=== PATIENT | female | born 1955 | race Two or more races ===

== ENCOUNTER 2017-11-03 07:49 | Day surgery (SDC) | payer OTHER ==
[2017-10-29 11:03] VITALS: BMI 26.2
[2017-11-03] MEDS ORDERED: KETOROLAC TROMETHAMINE 0.5% 5 ML BOTTLE OPTHALMIC OD SCH (08:00)
[2017-11-03] MEDS ORDERED: CYCLOPENTOLATE HCL 1% OPHTH SOLN 2 ML BOTTLE OD SCH (08:00)
[2017-11-03] MEDS ORDERED: TROPICAMIDE 1% OPHTH SOLN 15 ML BOTTLE OD SCH (08:00)
[2017-11-03] MEDS ORDERED: GENTAMICIN SULFATE 0.3% OPHTHALMIC (EYE DROPS) 5ML BOTTLE OD SCH (08:00)
[2017-11-03] MEDS ORDERED: PHENYLEPHRINE 2.5% OPHTH SOLN 15 ML BOTTLE OD SCH (08:00)
[2017-11-03] MEDS: GENTAMICIN SULFATE 0.3% OPHTHALMIC (EYE DROPS) 5ML BOTTLE ONE ×5 (08:30→08:50)
[2017-11-03] MEDS: CYCLOPENTOLATE HCL 1% OPHTH SOLN 2 ML BOTTLE ONE ×5 (08:30→08:50)
[2017-11-03] MEDS: TROPICAMIDE 1% OPHTH SOLN 15 ML BOTTLE ONE ×5 (08:30→08:50)
[2017-11-03] MEDS: KETOROLAC TROMETHAMINE 0.5% 5 ML BOTTLE OPTHALMIC ONE ×5 (08:30→08:50)
[2017-11-03] MEDS: PHENYLEPHRINE 2.5% OPHTH SOLN 15 ML BOTTLE ONE ×5 (08:30→08:50)
[2017-11-03] MEDS ORDERED: MIDAZOLAM HCL 2 MG/2 ML SINGLE DOSE VIAL ONE (09:11)
[2017-11-03] MEDS ORDERED: ACETAMINOPHEN 325 MG TABLET (FP) PO PRN (10:13)
[2017-11-03 10:26] VITALS: TEMP 98
[2017-11-03 10:53] VITALS: BP 112/67; PULSE 76
--- NOTE | 2017-11-03 11:22 | OP ---
DATE OF OPERATION: 11/03/2017 PREOPERATIVE DIAGNOSIS: Cataract, right eye. POSTOPERATIVE DIAGNOSIS: Cataract, right eye. PROCEDURE: Cataract extraction via phacoemulsification with insertion of posterior chamber lens implant, right eye, multifocal intraocular lens. . SURGEON: Karl Howell MD PICK UP AND DELIVERY DRIVER: Juanita Booker MD ANESTHESIA: Topical with sedation. ESTIMATED BLOOD LOSS: Less than 1 mL. COMPLICATIONS: None. SPECIMENS: None. DESCRIPTION OF PROCEDURE: The patient was identified in the holding area. After all the risks, benefits, and alternatives were explained to the patient, informed consent was obtained. The right eye was marked with a marking pen. The patient then entered the operating room on an eye stretcher. After a formal time-out was performed, a topical solution of tetracaine eye drops was placed onto the right eye. The right eye was then prepped and draped in the usual sterile fashion. An eyelid speculum was placed beneath the eyelids of the right eye. An superotemporal paracentesis incision was created using a 15-degree blade. Intraocular preservative-free lidocaine and preservative-free epinephrine was then injected the anterior chamber. Viscoelastic was injected into the anterior chamber. A 2.4-mm keratome blade was then used to make a inferotemporal incision. A 360-degree continuous curvilinear capsulorrhexis was then created using bent cystotome and Utrata forceps. Irrigation was used to perform a hydrodissection using balanced saline solution on a cannula. Phacoemulsification was introduced to disassemble and remove the nucleus in its entirety. Irrigation/aspiration was then used to remove any remaining cortical material from the eye. [place] was then used to macanese out all capsular strands and remaining cortical strands. The capsular bag was reformed using viscoelastic. An Alex model SV25T0 with a power of 22.5 diopters, serial number [id number], was inspected and found to be defect-free and injected into the capsular bag. Irrigation/aspiration was then used to remove any remaining viscoelastic from the eye including underneath the optic. The anterior chamber was removed using balanced saline solution . Intracameral Miochol and Miostat were then injected, and the pupil came down and was round. The optic was made sure to be centered perfectly within the small pupil, and confirmed centration using the microscope light. All wounds were hydrated with balanced saline solution, noted to be watertight. Upon inspection, the lens was perfectly centered in the capsular bag. The anterior chamber was deep. There was a red reflex present. The eye had an adequate pressure. Topical antibiotic eye drops and ointment were then instilled onto the right eye. The eyelid speculum was removed from the right eye. The right eye was shielded. The patient tolerated the procedure well and left the operating room in stable condition to follow up in the eye clinic tomorrow morning at 9:00. KARL HOWELL M.D. [id number]
== END 2017-11-03 10:50 | disposition home or self-care (01) ==
LOC: FASU 07:49
PROVIDERS: ATTEND Ophthalmology
PROC: 08RJ3JZ Replacement of Right Lens with Synthetic Substitute, Percutaneous Approach (ICD-10-PCS; principal; 2017-11-03 09:36)
DX: H26.9 Unspecified cataract (principal)
CPT/HCPCS: 82962